=== PATIENT | female | born 1970 | race Caucasian/White ===

== ENCOUNTER 2016-11-01 13:06 | Emergency (ER) | payer OTHER ==
[~2016-11-01] VITALS: Ht 172.7 cm; Wt 77.2 kg
[2016-11-01 15:09] VITALS: BP 120/86
== END 2016-11-01 15:10 | disposition home or self-care (01) ==
LOC: EME 13:06
DX: S40.022A Contusion of left upper arm, initial encounter (principal); R51 Headache; M54.2 Cervicalgia; V44.5XXA Car driver injured in collision with heavy transport vehicle or bus in traffic accident, initial encounter
CPT/HCPCS: 73060; 99281; 99283